=== PATIENT | female | born 1935 | race Caucasian/White ===

== ENCOUNTER 2023-07-25 15:52 | Emergency (ER) | payer MEDICARE, OTHER, SELFPAY ==
[2023-07-25 15:54] VITALS: BP 149/109; PULSE 85; RESP 14; TEMP 36.7; O2SAT 98; BMI 24.3
--- NOTE | 2023-07-25 16:09 | EX.ED.DYSGE1 ---
HPI History of Present Illness Chief Complaint: Constipation Informant: patient Onset/Context/Timing Onset: Days Narrative Narrative: Patient presents secondary to constipation. She states that she had had some mild constipation early last week and took a dose of Colace. Her last bowel movement was on the . She states since that time she feels that she needs to pass stool but has been unable. She feels that there is a mass or large hemorrhoid at the rectum blocking the stool from being able to pass. She states she had 1 day where there was just a few drops of blood when she wiped. Otherwise no GI bleeding. She believes her last colonoscopy was at least 20 years ago. [facility] Medical History (Updated 07/25/23 @ 19:[address] Jacey Dahl MD) Broken femur Medical History no medical history Home Medications Acyclovir 800 mg PO 5X/DAY ##7 03/08/15 [Rx Last Taken Unknown] Prednisone 40 mg PO DAILY ##7 03/08/15 [Rx Last Taken Unknown] Allergy/AdvReac Type Severity Reaction Status Date / Time cortisone Allergy Other Verified 07/25/23 15:53 oxycodone HCl AdvReac Nausea Verified 07/25/23 15:53 [From OxyContin] Surgical History (Updated 07/25/23 @ 16:09 by Judith Bowling) H/O: hysterectomy Social History Smoking Status: Never smoker ROS ROS ED Constitutional Constitutional ED: Denies chills or fever(s) Eyes Eyes: Denies discharge from eye(s) ENT ENT ED: Denies discharge from eye(s), rhinorrhea or sore throat Cardiovascular Cardiovascular: Denies chest pain or palpitations Respiratory/Chest Respiratory/Chest: Denies cough or dyspnea Gastrointestinal Gastrointestinal: Reports constipation; Denies abdominal pain, nausea or vomiting Genitourinary Genitourinary ED: Denies dysuria Musculoskeletal Musculoskeletal: Denies back pain or extremity pain Integumentary Denies Abrasions or rash Neurologic Neurologic: Denies headache(s) or weakness Psychiatric Psychiatric: Denies anxiety or depression Allergic/Immunologic Allergic/Immunologic ED: Denies lip swelling or urticaria EXAM Physical Exam Const Vital Signs: 07/25/23 15:54 Temperature 98.1 F Temperature Source Temporal Pulse Rate 85 Respiratory Rate 14 Blood Pressure 149/109 H Blood Pressure Mean 122 Pulse Ox 98 Oxygen Delivery Method Room Air Positive well nourished and well developed General Appearance ED: well developed HEENT Reports moist mucous membranes Eyes EOMs intact bilaterally Chest Wall inspection of chest normal and palpation of chest normal Resp normal respiratory effort and clear to auscultation bilaterally Cardio regular rate and regular rhythm GI non-tender GI Narrative: Rectal examination reveals no obvious external hemorrhoids. No masses on palpation and no stool noted in the vault. Auscultation: hypoactive bowel sounds Palpation: soft Extremity normal to inspection Neuro oriented x3 and no sensory deficits noted Motor Exam: strength 5/5 throughout Psych mental status grossly normal Skin no rashes or lesions noted MDM MDM MDM Narrative Medical decision making narrative: Patient sent for abdominal x-ray to evaluate stool pattern and location. Radiography Diagnostic Testing: Clinical Impression(s) from Imaging Studies KUB X-Ray 07/25/23 16:20 IMPRESSION: No acute pathology of the abdomen and pelvis. No significant fecal retention. Electronically Signed: James Terry DO at 18:33 EST Reading Location ID and State: [facility] / [place] Tel [phone], Service support , Treatment and Re-Evaluation :: Abdominal x-ray per my interpretation reveals some stool but no evidence of obstruction. Soapsuds enema was performed with good results. Patient feels improved. She will be discharged home. Discharge Plan Triage Chief Complaint: Constipation ED Provider: Jacey Dahl Dx/Rx/DC Orders Clinical Impression: Constipation Instructions: ED Constipation (Adult) Prescriptions: No Action Acyclovir 800 MG tablet 800 mg PO 5X/DAY Qty: 7 0RF Prednisone 20 MG tablet 40 mg PO DAILY Qty: 7 0RF Primary Care Provider: Care Physician,No Primary Referrals: Hermila Ma DO [Med Staff - Apprentice Electrician] - As Needed Care Physician,No Primary [Primary Care Provider] - Disposition Disposition: Home, Self Care
--- NOTE | 2023-07-25 16:20 | RAD_ITS ---
STUDY: X-RAY - ABDOMEN/PELVIS REASON FOR EXAM: Female, 88 years old. Constipation TECHNIQUE: Frontal views COMPARISON: None. FINDINGS: Normal visualized lung bases. There is an unremarkable bowel gas pattern. There is no demonstrated free abdominal air. The visualized liver, spleen and kidneys are grossly normal in size and morphology. Normal soft tissue structures. Degenerative vertebral changes. Mild scoliosis. RAD/Abdomen Single View IMPRESSION: No acute pathology of the abdomen and pelvis. No significant fecal retention. Electronically Signed: James Terry DO at 18:33 EST ,
--- OUTSIDE RECORDS SUMMARY | 2023-07-25 16:52 | XMS RPT_ITS | CCD ---
Author Name Unknown Address [address] [place] [address] [place] [id number] Organization [facility] Care Team Providers Care Search Engine Marketing Specialist Name Role Phone ZENON SALAS Attending Unavailable ZENON SALAS Primary Care Unavailable ZENON SALAS Admitting Unavailable Problems Problem Classification Problem Date Documented Da te Episodic/Chronic Immunizations and screening for infectious disease (3 sources) Encounter for screening for other viral diseases; Translations: [Encounter for screening for other viral diseases] Onset: 06-03-2020 Episodic Results Test Name Value Interpretation Reference Range Facil ity Encounters Encounter Date Encounter Type Care Provider Facility Start: 06-03-2020 End: 06-03-2020 Patient encounter procedure ZENON SALAS [facility] Payers Date Payer Category Payer Unknown [id number] Unknown Clinical Note 02-07-2021 Note Date & Type Note Facility 02-07-2021 Note . MICRO - Microbiology PROCEDURE: Urine Culture [*1] SOURCE: Urine, Clean Catch BODY SITE: COLLECTED DATE/TIME: 02/04/2021 15:21 EDT RECEIVED DATE/TIME: 02/05/2021 14:07 EDT START DATE/TIME: 02/05/2021 14:07 EDT FREE TEXT SOURCE: FINAL REPORTS Final Report [] Verified Date/Time/Personnel: 02/07/2021 07:24 EDT >100,000 cfu/ml Escherichia coli PRELIMINARY REPORTS Preliminary Report [] Verified Date/Time/Personnel: 02/06/2021 12:08 EDT >100,000 cfu/ml Escherichia coli MARILY to follow SUSCEPTIBILITY RESULTS Escherichia coli Antibiotic MARILY Dilut MARILY Inter Ampicillin >16 Resistant Ampicillin/ 16/8 Intermediate Sulbactam Aztreonam <=4 Susceptible Cefazolin <=2 Susceptible Ciprofloxacin <=0.25 Susceptible Ertapenem <=0.5 Susceptible Gentamicin <=2 Susceptible Imipenem <=1 Susceptible Levofloxacin <=0.5 Susceptible Meropenem <=1 Susceptible Nitrofurantoin <=32 Susceptible Piperacillin/ <=8 Susceptible Tazobactam Trimethoprim/ <=0.5/9.5 Susceptible Sulfa Performing Locations *1: This test was performed at: [facility], [facility] [address] [place] [address], [address] [place] [address] ([place]) Summary Purpose Family History No Family History Records FoundNo Family History Records Found Advance Directives No Advanced Directives Records FoundNo Advanced Directives Records Found Additional Source Comments INFORMATION SOURCE (unrecogn ized section and content) DATE CREATED AUTHOR AUTHOR'S ORGANIZ ATION 03/05/2021 [facility] [place] ([place]) FOR RECORDS PERTAINING TO PATIENTS WHO ARE OR HAVE BEEN ENROLLED IN A CHEMICAL DEPENDENCY/SUBSTANCEABUSE PROGRAM, SOME INFORMATION MAY BE OMITTED. This clinical summary was aggregated from multiple sources. Caution should be exercised in using it in the provision of clinical care. This summary normalizes information from multiple sources, and as a consequence, information in this document may materially change the coding, format and clinical context of patient data. In addition, data may be omitted in some cases. CLINICAL DECISIONS SHOULD BE BASED ON THE PRIMARY CLINICAL RECORDS. [facility] [employer] [facility]. provides no warranty or guarantee of the accuracy or completeness of information in this document.
== END 2023-07-25 19:09 | disposition home or self-care (01) ==
PROVIDERS: Emergency Provider Emergency Medicine; Visit Provider Emergency Medicine
DX: K59.00 Constipation, unspecified (principal)
CPT/HCPCS: 74018; 99284

== ENCOUNTER 2024-07-11 18:10 | Emergency (ER) | payer MEDICARE, OTHER, SELFPAY ==
[2024-07-11 18:11] VITALS: BP 164/95; PULSE 112; RESP 16; TEMP 37.6; O2SAT 97; BMI 23.5
[2024-07-11 19:09] LABS: Absolute Lymphocyte Count 0.68 X10^3/uL (0.83-4.51); Absolute Neutrophil Count 11.3 X10^3/uL (2.0-7.7); Basophil# 0.02 X10^3/uL; Basophil% 0.2 % (0-1); Hemoglobin 12.7 g/dL (12.0-15.0); Lymphocyte # 0.68 X10^3/ul (0.83-4.51); Lymphocyte % 5.2 % (19-41); Mean Corp Hgb Conc 34.3 g/dL (32-36); Mean Corpuscular Hgb 30.5 pg (27.0-32.0); Mean Corpuscular Volume 88.7 fL (81-99); Mean Platelet Vol. 8.5 fl (6.2-12.0); Monocyte# 0.98 X10^3/uL; Monocyte% 7.5 % (0-10); NRBC Flagged by Analyzer 0 % (0-5); Neutrophil % 86.6 % (47-70); Platelet Count 352 K/mm3 (150-450); RBC Distribution Width CV 12.7 % (11.6-14.6); RBC Distribution Width SD 41.1 fl (35.1-43.9); Red Blood Count 4.17 M/mm3 (4.2-5.4)
[2024-07-11 19:29] LABS: ALB/GLOB Ratio 0.7 RATIO (0.9-2.4); AST(SGOT) 12 U/L (15-37); Alanine Aminotransfer ALT/SGPT 14 U/L (13-56); Albumin, Serum 3.2 g/dL (3.2-5.0); Alkaline Phosphatase 119 U/L (45-117); Anion Gap 6 (5-15); BUN 10 mg/dL (7-18); BUN/Creat Ratio 17.6 RATIO (10-20); Calcium,Total 9.1 mg/dL (8.5-10.1); Chloride 99 mmol/L (98-107); Creatinine, Serum 0.57 mg/dL (0.55-1.02); EST Glomerular Filtration Rate 107 mL/min (>60); Est Glom Filt Rate - Afr Amer 129 mL/min (>60); Estimated Creatinine Clearance 35.97 ml/min; Globulin 4.3 g/dL (2.2-4.2); Glucose 97 mg/dL (74-106); Potassium 3.2 mmol/L (3.5-5.1); Protein, Total 7.5 g/dL (6.4-8.2); Sodium Level 132 mmol/L (136-145)
[2024-07-11 20:15] VITALS: BP 161/72; PULSE 82; RESP 17; TEMP 37.7; O2SAT 98
--- NOTE | 2024-07-11 20:24 | RAD_ITS ---
STUDY: X-RAY - RIGHT SHOULDER REASON FOR EXAM: Female, 89 years old. Injury/Pain TECHNIQUE: 3 view(s) of the shoulder. COMPARISON: None. FINDINGS: Narrowed glenohumeral articulation with narrowing of the subacromial space. Normal acromioclavicular joint. Normal acromion. Normal humeral head and visualized proximal humerus. The soft tissue structures are unremarkable. Normal visualized pulmonary apex. RAD/Shoulder min 2 Views IMPRESSION: Degenerative changes. No acute fracture or dislocation. Electronically Signed: Tha Martinez MD at 22:04 EST ,
--- NOTE | 2024-07-11 20:25 | RAD_ITS ---
STUDY: X-RAY CHEST REASON FOR EXAM: Female, 89 years old. Pain TECHNIQUE: PA and lateral COMPARISON: None. FINDINGS: The lungs are clear and expanded. There is no demonstrated pleural abnormality. Normal size heart. Normal mediastinum and betsy. Normal visualized pulmonary arteries. Mildly calcified aortic arch and descending thoracic aorta. Normal visualized thoracic spine. Normal visualized ribs, and clavicles. Degenerative changes of both shoulders There is no demonstrated abnormality of the visualized soft tissue structures of the upper abdomen. RAD/Chest PA and Lateral IMPRESSION: No acute cardiopulmonary pathology Electronically Signed: Tha Martinez MD at 22:03 EST ,
--- NOTE | 2024-07-11 20:29 | EDS_ITS ---
HPI History of Present Illness Chief Complaint: General Illness Informant: patient Onset/Context/Timing Onset: Weeks (1) Context: Gradual Onset Timing: Continuous Quality: Sharp Location: Neck, head, right shoulder Worsened by: Movement Relieved by: Nothing Narrative Narrative: Patient presents with neck pain, headache, and right shoulder pain that has been getting worse over the past week. Patient states her pain in her right shoulder has been getting worse over the past 3 to 4 days. Patient states it is worse with any movement. Patient describes it as sharp. Patient admits to some nausea. Patient also admits to an occipital headache. Patient denies any tr auma or injury. Patient states that she has had some nausea and diarrhea last week. [facility] Medical History Hyperlipemia Broken femur Home Medications ?Medication ?Instructions ?Recorded ?Last Taken ?Type cephalexin 500 mg capsule 500 mg PO Q6 #12 CAPSULES 07/11/24 Unknown Rx hydrocodone-acetaminophen 5-325mg 1 tab PO Q6H PRN PRN Pain 3 days 07/11/24 Unknown Rx 5mg-325mg #10 TABLETS Allergy/AdvReac Type Severity Reaction Status Date / Time cortisone Allergy Other Verified 07/11/24 18:11 oxycodone HCl (From AdvReac Nausea Verified 07/11/24 18:11 OxyContin) Surgical History History of rectal surgery History of bilateral knee replacement H/O: hysterectomy Social History Smoking Status: Never smoker ROS ROS ED Constitutional Constitutional ED: Denies chills or fever(s) Eyes Eyes: Denies blurry vision or change in vision ENT ENT ED: Denies rhinorrhea or sore throat Cardiovascular Cardiovascular: Denies chest pain or palpitations Respiratory/Chest Respiratory/Chest: Denies cough or dyspnea Gastrointestinal Gastrointestinal: Reports nausea; Denies vomiting Genitourinary Genitourinary ED: Denies dysuria or hematuria Musculoskeletal Musculoskeletal: Reports neck pain; Denies back pain Integumentary Denies abscess or rash Neurologic Neurologic: Reports headache(s); Denies weakness Allergic/Immunologic Allergic/Immunologic ED: Denies mouth swelling or urticaria EXAM Physical Exam Const Vital Signs: 12/18/24 18:11 07/11/24 20:15 07/11/24 20:16 Temperature 99.6 F H 99.8 F H Temperature Source Oral Oral Pulse Rate 112 H 82 Respiratory Rate 16 17 Respiratory Effort Normal Non-Labored Respiratory Pattern Normal Blood Pressure 164/95 H 161/72 H Blood Pressure Mean 118 101 Pulse Ox 97 98 Oxygen Delivery Method Room Air Room Air Positive well nourished and well developed General Appearance ED: well developed and NAD HEENT Reports moist mucous membranes Neck supple and no JVD Resp normal respiratory effort and clear to auscultation bilaterally Cardio regular rate and regular rhythm GI non-tender and non-distended Palpation: soft Neuro oriented x3, CN's II-XII intact bilaterally and no sensory deficits noted Sensorium / Orientation: alert Motor Exam: strength 5/5 throughout Psych mental status grossly normal MDM MDM MDM Narrative Medical decision making narrative: Differential diagnosis includes muscle strain, fracture, viral illness, pneumonia, bronchitis, and urinary tract infection. BC will be obtained to assess for leukocytosis and anemia. Comprehensive metabolic profile will be obtained to assess for electrolyte abnormality, hepatic function, and renal function. Urinalysis will be obtained to assess for urinary tract infection and hematuria. COVID-19, influenza, and RSV PCR will be obtained to assess for viral illness. Cervical spine x-rays will be obtained to assess for cervical spine fracture and spondylolisthesis. X-rays of the right shoulder will be obtained to assess for right shoulder fracture and dislocation. Chest x-ray will be obtained to assess for pneumonia and bronchitis. Lab Data Attestation: I reviewed the patient's lab results. Lab results narrative: CBC was reviewed. There is a slight leukocytosis of 13.0. The remainder is within normal limits. Comprehensive metabolic profile was reviewed. Potassium was slightly low at 3.2. Alkaline phosphatase was slightly elevated at 119. The remainder is within normal limits. Urinalysis was reviewed. Urine ketones were 150. Leukocyte esterase was 100 with 5-10 white blood cells and 1+ bact eria. There are 0-5 epithelial cells. There is 5-10 red blood cells. COVID-19 PCR was reviewed and was negative. Influenza PCR was reviewed and was negative for influenza A and influenza B. RSV PCR was reviewed and was negative. Labs: Laboratory Results - last 24 hr 12/18/24 18:58 WBC 13.0 H RBC 4.17 L Hgb 12.7 Hct 37.0 MCV 88.7 MCH 30.5 MCHC 34.3 RDW Std Deviation 41.1 RDW Coeff of Aiden 12.7 Plt Count 352 MPV 8.5 Immature Gran % (Auto) 0.500 Neut % (Auto) 86.6 H Lymph % (Auto) 5.2 L Desha % (Auto) 7.5 Eos % (Auto) 0.0 Baso % (Auto) 0.2 Absolute Neuts (auto) 11.3 H Absolute Lymphs (auto) 0.68 L Nucleated RBC % 0 Sodium 132 L Potassium 3.2 L Chloride 99 Carbon Dioxide 27.0 Anion Gap 6 BUN 10 Creatinine 0.57 Estim Creat Clear Calc 35.97 Est GFR (MDRD) Af Amer 129 Est GFR (MDRD) Non-Af 107 BUN/Creatinine Ratio 17.6 Glucose 97 Calcium 9.1 Total Bilirubin 1.00 AST 12 L ALT 14 Alkaline Phosphatase 119 H Total Protein 7.5 Albumin 3.2 Globulin 4.3 H Albumin/Globulin Ratio 0.7 L Radiography Chest X-Ray - ED: 2 View, Read by ED Physician, Read by Radiologist and No Acute Disease Diagnostic Testing: PA and lateral chest x-ray was obtained. There are 2 views. On my independent interpretation, lung sherman are clear. There is normal cardiac silhouette. Bony thorax is normal. There is no acute process noted. Radiologist also interpreted the x-ray and agrees. X-rays of the right shoulder were obtained. There are 4 views. On my interpretation, there is no acute fracture. There are degenerative changes noted. Radiologist also interpreted the x-rays and agrees. X-rays of the cervical spine were obtained. There are 4 views. On my independent interpretation, there is no acute fracture or subluxation. There is no spondylolisthesis. There are some degenerative changes. Radiologist also interpreted the x-rays and agrees. Additional Tests and Interventions Additional Tests or Interventions: Urine culture was ordered. Treatment and Re-Evaluation :: Patient was given a dose of [place] here. Patient was advised of her findings. Patient was given a prescription for Keflex for possible urinary tract infection. Patient was instructed to drink plenty of fluids. Patient was also given a prescription for a short course of [place] for pain. Patient understood and was agreeable with the plan. All questions were answered. Discharge Plan Triage Chief Complaint: General Illness Other Complaint: Nausea/Vomiting/Diarrhea ED Provider: Chandu Olguin Dx/Rx/DC Orders Clinical Impression: Urinary tract infection, Cervical myofascial strain Instructions: ED Neck Sprain or Strain, ED Cystitis Female Adult Prescriptions: New hydrocodone-acetaminophen 5-325 mg tablet 1 tab PO Q6H PRN PRN (Reason: Pain) 3 Days Qty: 10 0RF cephalexin 500 mg capsule 500 mg PO Q6 Qty: 12 0RF Primary Care Provider: Care Physician,No Primary Referrals: Care Physician,No Primary [Primary Care Provider] - Print Language: Swedish Disposition Disposition: Home, Self Care
[2024-07-11] MEDS: HYDROcodone Bitartrate/Apap 5/325 Tablet PO (20:48)
[2024-07-11 21:00] VITALS: BP 141/67; PULSE 81; RESP 17; TEMP 37.7; O2SAT 98
--- NOTE | 2024-07-11 21:00 | RAD_ITS ---
STUDY: X-RAY - CERVICAL SPINE REASON FOR EXAM: Female, 89 years old. Injury/Pain TECHNIQUE: 4 view(s) of the cervical spine were obtained. COMPARISON: None FINDINGS: Normal anterior atlantoaxial articulation. Normal odontoid process. Straightening of normal lordotic curvature possibly due to positioning artifact. . Grade 1 spondylolisthesis. No acute fracture or subluxation. No lytic or sclerotic bony lesions Multilevel disc space narrowing and endplate spurring The soft tissue structures are unremarkable. RAD/Cerv Spine 2 or 3 Views IMPRESSION: Advanced degenerative change. No acute fracture or subluxation. Electronically Signed: Tha Martinez MD at 22:06 EST ,
[2024-07-11 22:00] VITALS: BP 138/64; PULSE 81; RESP 17; TEMP 37.6; O2SAT 97
[2024-07-11 22:30] LABS: Color, Urine Straw (Yellow); Glucose, Dipstick Normal (Normal); Leukocyte Esterase-Dipstick 100 /ul (Negative); Nitrite-Dipstick Negative (Negative); Occult Blood-Urine 50 /ul (Negative); Protein-Dipstick 100 mg/dl (Negative); Urine Bilirubin Dipstick Negative (Negative); Urine Clarity Sl. Cloudy (Clear); Urine Urobilinogen 1 mg/dl (Normal)
[2024-07-11 22:37] LABS: Ketone-Dipstick 150 mg/dl (Negative)
[2024-07-11 22:46] LABS: Red Blood Cells-Urine 5-10 SEEN /hpf (0-5); White Blood Cells 5-10 SEEN /hpf (0-5)
[2024-07-11 22:47] LABS: Bacteria 1+ /hpf (None Seen); Hyaline Cast 0-5 SEEN /lpf (0-5); Mucous, Urine 2+ /hpf (<or=2+); Squamous Epithelial Cells - UA 0-5 SEEN /hpf (5-10)
[2024-07-11 23:00] VITALS: BP 137/59; PULSE 76; RESP 20; TEMP 37.6; O2SAT 95
[2024-07-11 23:57] VITALS: BP 142/52; PULSE 72; RESP 20; TEMP 36.6; O2SAT 95
[2024-07-12] MEDS: Cephalexin 500 MG Capsule PO (00:20)
== END 2024-07-12 00:18 | disposition home or self-care (01) ==
PROVIDERS: Emergency Provider Emergency Medicine; Visit Provider Emergency Medicine
DX: N39.0 Urinary tract infection, site not specified (principal); S16.1XXA Strain of muscle, fascia and tendon at neck level, initial encounter; X58.XXXA Exposure to other specified factors, initial encounter
CPT/HCPCS: 71046; 72040; 73030; 80053; 81001; 85025; 87086; 87088; 87631; 99285; A4216

== ENCOUNTER 2024-09-05 20:58 | Inpatient (IN) | payer MEDICARE, SELFPAY ==
[2024-09-05 21:01] VITALS: BP 153/96; PULSE 99; RESP 18; TEMP 36.8; O2SAT 99; BMI 24.7
--- NOTE | 2024-09-05 21:11 | EX.ED.DYSGE1 ---
HPI History of Present Illness Chief Complaint: General Illness [facility] Medical History Hyperlipemia Broken femur Home Medications ?Medication ?Instructions ?Recorded ?Last Taken ?Type benzonatate 100 mg capsule 100 mg PO TID PRN PRN cough 09/05/24 Unknown History doxycycline hyclate 100 mg tablet 100 mg PO BID 09/05/24 Unknown History Allergy/AdvReac Type Severity Reaction Status Date / Time cortisone Allergy Other Verified 09/05/24 21:04 oxycodone HCl (From AdvReac Nausea Verified 09/05/24 21:04 OxyContin) Surgical History History of rectal surgery History of bilateral knee replacement H/O: hysterectomy Social History Smoking Status: Never smoker EXAM Physical Exam Const Vital Signs: 09/05/24 21:01 09/05/24 21:17 09/05/24 23:00 Temperature 98.3 F Temperature Source Temporal Pulse Rate 99 89 Respiratory Rate 18 Respiratory Effort Short of Breath Respiratory Pattern Normal Blood Pressure 153/96 H 131/89 H Blood Pressure Mean 115 103 Pulse Ox 99 94 Oxygen Delivery Method Room Air 09/05/24 23:18 Temperature 97.6 F L Temperature Source Pulse Rate 89 Respiratory Rate 20 H Respiratory Effort Respiratory Pattern Blood Pressure 131/89 H Blood Pressure Mean 103 Pulse Ox 94 Oxygen Delivery Method MDM MDM MDM Narrative Medical decision making narrative: HISTORY OF PRESENT ILLNESS: 89-year-old female presents with concern for shortness of breath, difficulty voiding. States she has not urinated for the better part of 24 hours. States when she coughs or sneezes she has leakage of urine. Denies history of urinary tension. Notes shortness of breath as well for last 3 weeks. No she has been wheezing. No she went into urgent care approximately 9 days ago and was diagnosed with walking pneumonia. She was on doxycycline for which she is on day 9 of 10. She denies fever. Denies chest pain. Denies any PE risk factors (the patient denies recent surgery in the last 4 weeks or immobilization in the last 3 days, denies previous diagnosis of DVT or PE, hemoptysis, unilateral leg swelling or malignancy with treatment the last 6 months or palliative. No estrogen use noted.). Denies any bleeding diathesis. REVIEW OF SYSTEMS: Pertinent positives: Shortness of breath, urinary Pertinent negatives: Leg swelling, fever PHYSICAL EXAM: Nursing triage notes reviewed, Vital signs reviewed Constitutional: please see mdm HENT: MMM Eyes: Pupils equal round and reactive to light, Extraocular muscles intact Neck: No stridor, no JVD, full neck ROM Lungs: Clear to auscultation, slight expiratory wheezes noted no increased work of breathing, no conversational dyspnea, no accessory muscle use, no nasal flaring. No respiratory distress noted Heart: Regular rate and rhythm, No murmurs, No rubs and No gallops, 2+ distal pulses (radial, femoral, posterior tibial) in all extremities Abdomen: Soft, there is no tenderness, fullness noted to the suprapubic region of the lower abdomen but no rigidity, rebound or guarding, no obvious peritoneal signs, no palpable pulsatile abdominal masses, no auscultated abdominal bruit : No CVAT Extremities: No edema Neuro: No new focal neurological deficits, cranial nerves II through XII intact, 5/5 strength in all present extremities. Intact sensation to light touch in all present extremities, 2+ reflexes bilateral patella tendons. Skin: No rash or lesions noted MEDICAL DECISION MAKING: Chief Complaint: Short of breath, urinary retention External records reviewed: Reviewed prior ED visits, reviewed allergies, problem list, current medications Factors affecting care: none Social determinants of health: denies smoking History obtained from others: The patient's son Consults: Internal medicine (Dr. Albert) recommended PCU admission MDM Narrative: The patient was initially hemodynamically stable, afebrile and nontoxic-appearing. Exam with slight wheezing but no evidence of significant airway or respiratory compromise. Abdomen was soft however had lower abdominal fullness. I considered the following differential diagnosis: Urinary retention, AR, arrhythmia, anemia, electrolyte disturbance, COVID, RSV, flu, ACS, PE, CHF I obtained a broad lab and imaging workup to further elucidate etiology of patient's complaints. I obtained a bladder scan given patient report of Decreased urinary output ALL IMAGES (IF OBTAINED) HAVE BEEN PERSONALLY REVIEWED AND INTERPRETED BY MYSELF. Chest x-ray was read and reviewed personally showed evidence of right upper lobe and right middle lobe pneumonia BNP elevated consistent with increased ventricular stretch and a component of volume overload Initial troponin elevated consistent with myocardial ischemia CBC without leukocytosis, severe anemia, no thrombocytopenia. Without leukocytosis to suggest a significant nation, noted mild anemia, no thrombocytopenia BMP without evidence of significant electrolyte abnormalities, no anion gap, no acute kidney injury. EKG with normal sinus rhythm, normal axis, no intervals, QTc 430, no STEMI however there are ST depressions noted in V3 V4 and 5 consistent with subendocardial ischemia Given the patient's report of shortness of breath and markedly elevated troponin in the setting of internal chest x-ray for lung mass I did obtain a CTA of the chest rule out PE or lung mass. CT of the chest showed no evidence of pulmonary visible did show evidence of changes suggestive of pneumonia. No mass noted. Patient was treated with IV ceftriaxone azithromycin. I suspect her presentation may be related to pneumonia causing transient hypoxia and a type II demand ischemia leading to elevated troponin and NSTEMI. Discussed the case with hospitalist who agreed to admit the patient. The patient and/or family, caregivers express understanding. The patient and/or family, caregivers agrees with the plan. Shared decision making: I will have a discussion with the patient and or visitors regarding risk/benefits of further testing or admission. They will be made aware of of the risk/benefits inherent in this decision they will be given the opportunity to voice understanding. Total critical care time today provided was at least 0 minutes. This excludes separately billable procedures. Critical care time (if documented) is secondary to the patient having high probability of clinically significant/life threatening deterioration in the patient's condition which required my urgent intervention. Impression: 1. NSTEMI 2. Pneumonia 3. Anemia Dispo: Admit to the hospital This note was generated with [employer] dictation software. It may contain incorrect words, spelling, and punctuation that were not noted in review of the chart prior to signing. Lab Data Labs: Laboratory Results - last 24 hr 09/05/24 21:35 WBC 10.9 RBC 3.56 L Hgb 10.0 L Hct 31.3 L MCV 87.9 MCH 28.1 MCHC 31.9 L RDW Std Deviation 46.7 H RDW Coeff of Aiden 14.6 Plt Count 312 MPV 9.1 Immature Gran % (Auto) 0.500 Neut % (Auto) 82.0 H Lymph % (Auto) 9.1 L [place] % (Auto) 7.3 Eos % (Auto) 0.7 Baso % (Auto) 0.4 Absolute Neuts (auto) 8.9 H Absolute Lymphs (auto) 0.99 Nucleated RBC % 0 Sodium 137 Potassium 3.6 Chloride 102 Carbon Dioxide 27.0 Anion Gap 7 BUN 13 Creatinine 0.64 Estim Creat Clear Calc 39.47 Est GFR (MDRD) Af Amer 112 Est GFR (MDRD) Non-Af 93 BUN/Creatinine Ratio 20.3 H Glucose 103 Calcium 8.6 Troponin I High Sens 170 H* B-Natriuretic Peptide 581.1 H Radiography Diagnostic Testing: Clinical Impression(s) from Imaging Studies Chest X-Ray 09/05/24 22:00 IMPRESSION: Focal right apical airspace opacity, potentially pneumonia. Recommend radiographic follow-up after medical management to ensure complete resolution and exclude underlying malignancy. Reading Location: [facility] Chest CTA 09/05/24 22:15 IMPRESSION: 1. Large ground-glass airspace consolidation in the right upper lobe as well as scattered ground-glass airspace opacities in the bilateral lungs likely on an infectious inflammatory basis. 2. Small to moderate right and trace left pleural effusions with adjacent dependent infiltrates or atelectasis. 3. No CT evidence of pulmonary embolism. 4. Mediastinal and right hilar lymphadenopathy likely reactive to #1. 5. Additional findings as above. One or more dose reduction techniques were used (e.g., Automated exposure control, adjustment of the mA and/or kV according to patient size, use of iterative reconstruction technique). Reading Location: [facility] Discharge Plan Triage Chief Complaint: General Illness ED Provider: Eyad Canseco Dx/Rx/DC Orders Prescriptions: No Action benzonatate 100 mg capsule 100 mg PO TID PRN PRN (Reason: cough) doxycycline hyclate 100 mg tablet 100 mg PO BID Primary Care Provider: Care Physician,No Primary Referrals: Care Physician,No Primary [Primary Care Provider] - Print Language: Serbian
[2024-09-05 21:43] LABS: Absolute Lymphocyte Count 0.99 X10^3/uL (0.83-4.51); Absolute Neutrophil Count 8.9 X10^3/uL (2.0-7.7); Basophil# 0.04 X10^3/uL; Basophil% 0.4 % (0-1); Eosinophil# 0.08 X10^3/uL; Eosinophils% 0.7 % (0-5); Hematocrit 31.3 % (37-47); Lymphocyte # 0.99 X10^3/ul (0.83-4.51); Lymphocyte % 9.1 % (19-41); Mean Corp Hgb Conc 31.9 g/dL (32-36); Mean Corpuscular Hgb 28.1 pg (27.0-32.0); Mean Corpuscular Volume 87.9 fL (81-99); Mean Platelet Vol. 9.1 fl (6.2-12.0); Monocyte# 0.79 X10^3/uL; Monocyte% 7.3 % (0-10); NRBC Flagged by Analyzer 0 % (0-5); Neutrophil # 8.91 X10^3/uL (2.7-7.7); Platelet Count 312 K/mm3 (150-450); RBC Distribution Width CV 14.6 % (11.6-14.6); RBC Distribution Width SD 46.7 fl (35.1-43.9); Red Blood Count 3.56 M/mm3 (4.2-5.4); White Blood Count 10.9 K/mm3 (4.4-11.0)
--- NOTE | 2024-09-05 22:00 | RAD_ITS ---
PROCEDURE: CHEST 1 VIEW (PORTABLE) REASON FOR EXAM: Shortness of breath TECHNIQUE: Frontal view of the chest COMPARISON: None. FINDINGS: Borderline cardiomegaly. Diffuse coarse bilateral interstitial lung markings. Focal airspace opacity at the right lung apex. No sizable pleural effusion or pneumothorax. RAD/Chest 1 View (Portable) IMPRESSION: Focal right apical airspace opacity, potentially pneumonia. [facility] after medical management to ensure complete resolution and exclude underlying malignancy. Reading Location: [facility]
[2024-09-05 22:12] LABS: Anion Gap 7 (5-15); BUN 13 mg/dL (7-18); BUN/Creat Ratio 20.3 RATIO (10-20); Calcium,Total 8.6 mg/dL (8.5-10.1); Chloride 102 mmol/L (98-107); Creatinine, Serum 0.64 mg/dL (0.55-1.02); EST Glomerular Filtration Rate 93 mL/min (>60); Est Glom Filt Rate - Afr Amer 112 mL/min (>60); Estimated Creatinine Clearance 39.47 ml/min; Glucose 103 mg/dL (74-106); Potassium 3.6 mmol/L (3.5-5.1); Sodium Level 137 mmol/L (136-145); Troponin-I HS 170 pg/mL (3.0-54.0)
--- NOTE | 2024-09-05 22:15 | CT_ITS ---
PROCEDURE: CTA CHEST W/WO CONTRAST REASON FOR EXAM: Shortness of breath, cough. Questionable mass. TECHNIQUE: CTA imaging of the chest with intravenous contrast. 3D MIP images in the coronal and sagittal planes were obtained. 2D sagittal and coronal reformats were provided. COMPARISON: Chest x-ray from 09/05/2024. FINDINGS: There is no evidence of pulmonary embolism. Thoracic aorta demonstrates normal caliber with atherosclerotic calcifications. Cardiac size is within normal limits. There is mediastinal and right hilar lymphadenopathy. No pericardial effusion is identified. There is a small to moderate right and trace left pleural effusion with adjacent dependent infiltrates or atelectasis. There is a large ground-glass airspace consolidation in the right upper lobe. There are scattered ground-glass airspace opacities in the bilateral lungs. There is prominence of the pulmonary interstitium. Central airway is patent. No pneumothorax is identified. Evaluation of the osseous structures demonstrates degenerative changes. There is levoscoliosis of the lower thoracic spine. CT/CTA Chest W/WO Contrast IMPRESSION: 1. Large ground-glass airspace consolidation in the right upper lobe as well as scattered ground-glass airspace opacities in the bilateral lungs likely on an infectious inflammatory basis. 2. Small to moderate right and trace left pleural effusions with adjacent depen dent infiltrates or atelectasis. 3. No CT evidence of pulmonary embolism. 4. Mediastinal and right hilar lymphadenopathy likely reactive to #1. 5. Additional findings as above. One or more dose reduction techniques were used (e.g., Automated exposure contr ol, adjustment of the mA and/or kV according to patient size, use of iterative reconstruction technique). Reading Location: [facility]
[2024-09-05 22:45] LABS: BNP,B-Type NATRIURETIC PEPTIDE 581.1 pg/mL (0-100)
[2024-09-05 23:00] VITALS: BP 131/89; PULSE 89; O2SAT 94
[2024-09-05 23:18] VITALS: BP 131/89; PULSE 89; RESP 20; TEMP 36.4; O2SAT 94
--- NOTE | 2024-09-05 23:33 | HP.PCM.HOS_ITS ---
[facility] - General General Date of Admission: 09/06/24 Date of Service: 09/05/24 Chief Complaint: SOB and Urinary Incontinence. 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 Ms. White reports her symptoms began approximately three weeks prior to admission with the gradual-onset of DEAN with occasional wheezing. She then went to Urgent Care 9 days ago and was diagnosed with walking pneumonia and started on oral doxycycline with her symptoms failing to improve so she decided to come in for further evaluation and treatment. She also admits to associated stress incontinence of urine when she sneezes or coughs with leakage of urine. She denies related fever, chills, nausea, vomiting, diarrhea, constipation, chest pain, palpitations, lower extremity swelling, paresthesias or headache. In the ER she was noted to have CTA of the chest which revealed large ground-glass airspace consolidation in the RUL as well as scattered ground-glass air space opacities in the bilateral lungs likely on an infectious / inflammatory basis with small to moderate Right and trace Left pleural effusions with adjacent dependent infiltrates or atelectasis with no evidence of PE plus mediastinal and Right hilar lymphadenopathy likely reactive to infection complicated by elevated BNP of 581.1 pg/mL present on admission consistent with superimposed AE CHF; of uncertain-type complicated by elevated troponin of 170 pg/mL suspected to be due to Acute Cardiac Strain along with clinical evidence of Respiratory Insufficiency and worsening Stress Incontinence of urine and she was then admitted to the PCU for ongoing care for a stay that is expected to extend beyond 2 midnights. [facility] Medical History Hyperlipemia Broken femur Home Medications ?Medication ?Instructions ?Recorded ?Last Taken ?Type benzonatate 100 mg capsule 100 mg PO TID PRN PRN cough 09/05/24 Unknown History doxycycline hyclate 100 mg tablet 100 mg PO BID Unknown History Allergy/AdvReac Type Severity Reaction Status Date / Time cortisone Allergy Other Verified 09/05/24 21:04 oxycodone HCl (From AdvReac Nausea Verified 09/05/24 21:04 OxyContin) Surgical History History of rectal surgery History of bilateral knee replacement H/O: hysterectomy Social History Smoking Status: Never smoker ROS ROS Narrative Review of Systems: Constitutional: Patient denies fever or chills. Eyes: Patient denies changes in vision or discharge from eyes. ENT: Patient denies runny nose, sore throat or ear pain. Resp: Patient admits to SOB, cough and mild intermittent wheezing. CV: Patient denies chest pain, palpitations, heart racing or lower extremity edema. GI: Patient denies abdominal pain, nausea, vomiting, diarrhea or constipation. : Patient admits to worsening stress incontinence with cough and sneezing. She denies dysuria or hematuria. MSK: Patient denies arthralgias or myalgias. Skin: Patient denies rash, abscess, wound or jaundice. Psych: Patient denies symptoms of uncontrolled depression or anxiety. Neuro: Patient denies headache, paresthesias or focal neurologic deficits. Allergy: Patient denies lip swelling, tongue swelling or urticaria. Hematology: Patient denies easy bleeding or easy bruisability. Endocrinology: Patient denies polyuria, polydipsia or polyphagia. 14 point ROS otherwise negative except for positives noted above in HPI. Vital Signs Vital Signs Vital Signs: 09/05/24 21:01 09/05/24 21:17 09/05/24 23:00 Temperature 98.3 F Temperature Source Temporal Pulse Rate 99 89 Respiratory Rate 18 Respiratory Effort Short of Breath Respiratory Pattern Normal Blood Pressure 153/96 H 131/89 H Blood Pressure Mean 115 103 Pulse Ox 99 94 Oxygen Delivery Method Room Air 09/05/24 23:18 Temperature 97.6 F L Temperature Source Pulse Rate 89 Respiratory Rate 20 H Respiratory Effort Respiratory Pattern Blood Pressure 131/89 H Blood Pressure Mean 103 Pulse Ox 94 Oxygen Delivery Method Weight Weight: 131 lb Body Mass Index (BMI) 24.7 Physical Exam Const alert, oriented x3, no apparent distress and average body habitus Constitutional Narrative: Patient appear chronically ill. General Appearance: cooperative HEENT normocephalic, head/scalp atraumatic, hearing grossly normal bilaterally and moist oral mucous membranes Eyes PERRL, EOMs intact bilaterally and conjunctivae normal Neck no lymphadenopathy and supple Resp Resp Narrative: Diminished breath sounds throughout, Right > Left, with mild scattered expiratory wheezing. Cardio regular rate and regular rhythm GI normal to inspection, nondistended, normoactive bowel sounds, soft to palpation, non-tender and non-distended Extremity normal to inspection, full ROM and no clubbing, cyanosis or edema Skin Skin Narrative: Patient has no evidence of rash, abscess, wounds or jaundice. Neuro oriented x3, CN's II-XII intact bilaterally, moves all extremities and no focal motor deficits Sensorium / Orientation: awake, alert, oriented to person, oriented to place and oriented to time Speech: speech normal Psych affect normal Results Medical Records Data Attestation: I reviewed the patient's medical records Lab / Micro Data Attestation: I reviewed the patient's lab results. 09/06/24 03:30 09/06/24 03:30 Labs: Laboratory Results - last 24 hr 09/05/24 21:35: WBC 10.9, RBC 3.56 L, Hgb 10.0 L, Hct 31.3 L, MCV 87.9, MCH 28.1, MCHC 31.9 L, RDW Std Deviation 46.7 H, RDW Coeff of Aiden 14.6, Plt Count 312, MPV 9.1, Immature Gran % (Auto) 0.500, Neut % (Auto) 82.0 H, Lymph % (Auto) 9.1 L, [place] % (Auto) 7.3, Eos % (Auto) 0.7, Baso % (Auto) 0.4, Absolute Neuts (auto) 8.9 H, Absolute Lymphs (auto) 0.99, Nucleated RBC % 0, Sodium 137, Potassium 3.6, Chloride 102, Carbon Dioxide 27.0, Anion Gap 7, BUN 13, Creatinine 0.64, Estim Creat Clear Calc 39.47, Est GFR (MDRD) Af Amer 112, Est GFR (MDRD) Non-Af 93, BUN/Creatinine Ratio 20.3 H, Glucose 103, Calcium 8.6, T roponin I High Sens 170 H*, B-Natriuretic Peptide 581.1 H Micro: Microbiology 09/05/24 21:42 Mucosa - Nose SARS-CoV-2, Influenza & RSV (PCR) - Final Imaging Radiology Impression Chest X-Ray 09/05/24 22:00 IMPRESSION: Focal right apical airspace opacity, potentially pneumonia. Recommend radiographic follow-up after medical management to ensure complete resolution and exclude underlying malignancy. Reading Location: [facility] Chest CTA 09/05/24 22:15 IMPRESSION: 1. Large ground-glass airspace consolidation in the right upper lobe as well as scattered ground-glass airspace opacities in the bilateral lungs likely on an infectious inflammatory basis. 2. Small to moderate right and trace left pleural effusions with adjacent dependent infiltrates or atelectasis. 3. No CT evidence of pulmonary embolism. 4. Mediastinal and right hilar lymphadenopathy likely reactive to #1. 5. Additional findings as above. One or more dose reduction techniques were used (e.g., Automated exposure control, adjustment of the mA and/or kV according to patient size, use of iterative reconstruction technique). Reading Location: [facility] Assessment & Plan Assessment/Plan (1) Multifocal pneumonia: (2) Therapy failure due to antibiotic resistance: (3) Elevated troponin: (4) Respiratory insufficiency: (5) Stress incontinence in female: PLAN: Plan 1. Multifocal Pneumonia evident on CT; with Failed Outpatient Antibiotic Treatment with 9/10 days of doxycycline - Admit to PCU. Continue empiric IV ceftriaxone and IV azithromycin begun in the ER and await culture and sensitivity data. Check urinary antigens to Streptococcus pneumonia and Legionella. Give scheduled Mucinex BID. Give acetaminophen prn for [id number] (level 1-5/10) pain or fever. Give morphine IV prn for severe (level 6-10/10) pain. 2. AE CHF; of uncertain type evidenced by BNP of 581.1 pg/mL present on admission complicating #1 - Give furosemide IV daily plus supplemental KCl and magnesium. Check echocardiogram to evaluate LVEF. 3. Elevated troponin of 170 pg/mL due to suspected Acute Cardiac Strain due to #1 & #2 - Serialize troponin. Give ECASA plus full-dose Lovenox. Check Lexiscan NST in AM. 4. Respiratory Insufficiency attributable to #1 - #3 - Wean supplemental oxygen as tolerated. 5. Stress Incontinence adding to the burden of disease outlined from #1 - #4 - Patient will need to follow up with urology to explore treatment options. 6. History of hyperlipidemia; currently not on treatment - Check Lipid Profile to confirm status. 7. History of VZV of the Left face (2014) - Noted with no evidence of acute flare at this time. 8. History of constipation - Stable with no active issues reported at this time. 9. History of rectal surgery - Noted. 10. History of femur fracture - s/p ORIF - Noted. 11. History of hysterectomy - Noted. 12. OA; with history of bilateral TKR's - Stable. Give acetaminophen prn as per pain scale outlined above. 13. DVT prophylaxis - Patient on full-dose Lovenox for #3. Total time: Approximately (but not less than) 75 minutes. Charges/Coding Visit Charges Inpatient E&M: 88736 Init Hosp L3
--- NOTE | 2024-09-05 23:34 | EKG12_ITS ---
Test Reason : DYSRHYTHMIA Blood Pressure : */* mmHG Vent. Rate : 94 BPM Atrial Rate : 94 BPM P-R Int : 164 ms QRS Dur : 84 ms QT Int : 344 ms P-R-T Axes : 69 58 29 degrees QTcB Int : 430 ms Normal sinus rhythm Possible Left atrial enlargement ST & T wave abnormality, consider anterolateral ischemia Abnormal ECG Confirmed by VARUN CARPIO, CINDY ([id number]), greeting card editor ALLIE KAT ([id number]) on 09/07/2024 1:02:16 PM Referred By: Confirmed By: CINDY BOND MD
--- NOTE | 2024-09-05 23:37 | ED.RN ---
NO OLD EKG
[2024-09-05] MEDS: Ceftriaxone 1 GM/50 ML BAG IV (23:42)
[2024-09-06] VITALS (10 sets, daily range): BP systolic 118–141; BP diastolic 63–84; PULSE 82–95; RESP 14–24; TEMP 36.8–37.2; O2SAT 91–97; BMI 24.3
--- NOTE | 2024-09-06 00:13 | ECHOD_ITS ---
Reason For Study Reason For Study: chf Procedure This was a 2D Doppler, Color Flow transthoracic echocardiogram. Exam performed portable in patient room. Left Ventricle Normal LV size. The estimated ejection fraction is 60 %. No evidence for diastolic dysfunction. No regional wall motion abnormalities noted. Right Ventricle Normal RV size. Normal systolic function. Atria The left and right atria are normal. No doppler evidence for ASD. Mitral Valve There is no mitral valve stenosis. Moderate to severe mitral regurgitation. Tricuspid Valve There is no tricuspid stenosis. Trivial tricuspid valve insufficiency. Unable to estimate RV systolic pressure due to insufficient tricuspid regurgitant envelope. Aortic Valve Trisinus/trileaflet aortic valve. There is no aortic stenosis. No aortic valve insufficiency. Pulmonic Valve There is no pulmonic valvular stenosis. No pulmonic valve insufficiency. Great Vessels Normal aortic root. Pericardium/Pleural No pericardial effusion. MMode/2D Measurements & Calculations LVIDd: 3.5 cm IVSd: 1.0 cm LAV(MOD- bp): 39.0 ml LVIDs: 2.8 cm LVPWd: 1.2 cm LAV(MOD- bp) Indexed: 24.9 ml/m2 RVDd: 2.5 cm FS: 21.0 % LAV(MOD- sp2): 38.0 ml LAV(MOD- sp4): 36.6 ml SV(MOD-sp4): 34.9 ml SV(sp4- el): 37.9 ml LVAd ap4: 26.1 cm2 LVLd ap4: 7.8 cm SI(MOD-sp4): 22.3 ml/m2 EDV(MOD-sp4): 72.4 ml EDV(sp4-el): 74.6 ml LVAs ap4: 16.6 cm2 LVLs ap4: 6.4 cm ESV(MOD-sp4): 37.5 ml ESV(sp4-el): 36.7 ml EF(MOD-sp4): 48.2 % EF(sp4-el): 50.8 % LA A4 area: 14.9 cm2 RA A4 area: 11.5 cm2 Time Measurements MV dec time: 0.18 sec Doppler Measurements & Calculations MV E max magno: 89.1 cm/sec Lat Peak E' Magno: 8.5 cm/sec Med Peak E' Magno: 7.0 cm/sec MV A max magno: 103.9 cm/sec E/E' lat: 10.5 E/E' med: 12.8 MV E/A: 0.86 MV dec slope: 520.1 cm/sec2 Ao V2 max: 167.5 cm/sec LV V1 max: 139.7 cm/sec Ao max P.3 mmHg LV V1 max P.8 mmHg Ao V2 mean: 116.8 cm/sec LV V1 mean P.6 mmHg Ao mean P.3 mmHg LV V1 mean: 101.2 cm/sec Ao V2 VTI: 36.2 cm LV V1 VTI: 29.3 cm AV (velocity ratio): 0.81 PA V2 max: 108.7 cm/sec PA V2 mean: 77.3 cm/sec ECHO/Echo Complete Interpretation Summary The estimated ejection fraction is 60 %. No evidence for diastolic dysfunction. Moderate to severe mitral regurgitation Ordering Physician: Ronal Colin Referring Physician: no pcp Performed By: Tamia Torrez RCS
[2024-09-06] MEDS: Azithromycin 500 MG in 0.9% Normal Saline (250mL Bag) 250 ML 250 MG IV (00:28)
[2024-09-06 01:01] LABS: Thyroid Stim Hormone (TSH) 0.832 uIU/mL (0.358-3.740)
[2024-09-06] MEDS: Albumin Human 25% (50 mL) 12.5 GM/50 ML IV.SOLN IV (01:49)
[2024-09-06] MEDS: Aspirin 325 MG Tablet PO (01:49)
[2024-09-06 02:20] LABS: Troponin-I HS 182 pg/mL (3.0-54.0)
[2024-09-06 03:44] LABS: Absolute Lymphocyte Count 1.01 X10^3/uL (0.83-4.51); Absolute Neutrophil Count 7.4 X10^3/uL (2.0-7.7); Basophil# 0.03 X10^3/uL; Basophil% 0.3 % (0-1); Eosinophil# 0.05 X10^3/uL; Eosinophils% 0.5 % (0-5); Hematocrit 27.9 % (37-47); Hemoglobin 9.3 g/dL (12.0-15.0); Lymphocyte # 1.01 X10^3/ul (0.83-4.51); Lymphocyte % 10.9 % (19-41); Mean Corp Hgb Conc 33.3 g/dL (32-36); Mean Corpuscular Hgb 28.6 pg (27.0-32.0); Mean Corpuscular Volume 85.8 fL (81-99); Mean Platelet Vol. 9.2 fl (6.2-12.0); Monocyte# 0.74 X10^3/uL; NRBC Flagged by Analyzer 0 % (0-5); Neutrophil # 7.37 X10^3/uL (2.7-7.7); Neutrophil % 79.8 % (47-70); Platelet Count 299 K/mm3 (150-450); RBC Distribution Width CV 14.5 % (11.6-14.6); RBC Distribution Width SD 45.2 fl (35.1-43.9); Red Blood Count 3.25 M/mm3 (4.2-5.4); White Blood Count 9.3 K/mm3 (4.4-11.0)
[2024-09-06] MEDS: MethylPREDNISolone 125 MG/2 ML Vial IV (04:00)
[2024-09-06] MEDS: 0.9% Saline Lock 10 ML Syringe IV ×3 (04:01→17:27)
[2024-09-06 04:10] LABS: BNP,B-Type NATRIURETIC PEPTIDE 921.9 pg/mL (0-100)
[2024-09-06 04:18] LABS: ALB/GLOB Ratio 0.9 RATIO (0.9-2.4); AST(SGOT) 37 U/L (15-37); Alanine Aminotransfer ALT/SGPT 28 U/L (13-56); Albumin, Serum 2.9 g/dL (3.2-5.0); Alkaline Phosphatase 114 U/L (45-117); Anion Gap 7 (5-15); BUN 11 mg/dL (7-18); BUN/Creat Ratio 19.4 RATIO (10-20); Calcium,Total 8.4 mg/dL (8.5-10.1); Chloride 102 mmol/L (98-107); Cholesterol 198 mg/dL (200); Creatinine, Serum 0.57 mg/dL (0.55-1.02); EST Glomerular Filtration Rate 107 mL/min (>60); Est Glom Filt Rate - Afr Amer 129 mL/min (>60); Globulin 3.4 g/dL (2.2-4.2); Glucose 102 mg/dL (74-106); High Density Lipoprotein 54 mg/dL; Phosphorus 2.8 mg/dL (2.5-4.9); Potassium 3.8 mmol/L (3.5-5.1); Protein, Total 6.3 g/dL (6.4-8.2); Sodium Level 134 mmol/L (136-145); Triglycerides 50 mg/dL; Very Low Density Lipoprotein 10 mg/dL (5-40)
[2024-09-06 04:28] LABS: Troponin-I HS 189 pg/mL (3.0-54.0)
--- NOTE | 2024-09-06 05:20 | RAD_ITS ---
PROCEDURE: CHEST 1 VIEW (PORTABLE) REASON FOR EXAM: 89-year-old female, multifocal pneumonia and acute onset CHF. TECHNIQUE: Frontal view of the chest. COMPARISON: CTA chest and chest radiograph 09/05/2024, FINDINGS: The heart size is normal. Similar right upper lobe airspace opacity. Small right and trace left pleural effusions. No pneumothorax. Degenerative changes are identified within the thoracic spine. RAD/Chest 1 View (Portable) IMPRESSION: Similar right upper lobe opacity, compatible with pneumonia. Small right and t race left pleural effusions. Reading Location: [id number]
--- NOTE | 2024-09-06 05:55 | EKG12_ITS ---
Test Reason : CP ADMISSION Blood Pressure : */* mmHG Vent. Rate : 90 BPM Atrial Rate : 90 BPM P-R Int : 146 ms QRS Dur : 88 ms QT Int : 380 ms P-R-T Axes : 37 62 -18 degrees QTcB Int : 464 ms Normal sinus rhythm Cannot rule out Inferior infarct , age undetermined Cannot rule out Anterior infarct , age undetermined Abnormal ECG When compared with ECG of 05-Sep-2024 23:48, MANUAL COMPARISON REQUIRED DATA IS UNCONFIRMED Confirmed by VARUN CARPIO, CINDY ([id number]), desk editor ALLIE KAT ([id number]) on 09/07/2024 1:04:48 PM Referred By: HER Confirmed By: CINDY BOND MD
--- NOTE | 2024-09-06 08:35 | NURSING ---
Attempted to complete patients ambulatory pulse ox but patient was unable to walk very far. Patient felt significantly short of breath, saturation hit 88% and patient needed to stop to catch her breath. Was starting to apply oxygen to continue testing but patient requested to go back to her room so oxygen not applied and after resting, saturation was 89-90%. Patient back to room and resting, recovered with rest. CM and charge attendant notified.
[2024-09-06] MEDS: Potassium Chloride Oral Tablet 20 MEQ PO ×2 (08:43→17:24)
[2024-09-06] MEDS: Cholecalciferol (Vit D3) 125 MCG CAPSULE (5,000 UNITS) PO (08:43)
[2024-09-06] MEDS: Ascorbic Acid 500 MG Tablet 1000 MG PO ×2 (08:43→17:25)
[2024-09-06] MEDS: Lactobacillis Acidophilus 1 CAP PO ×3 (08:43→20:37)
[2024-09-06] MEDS: Magnesium Chloride 64 MG Delay Rel.Tablet 128 MG PO ×2 (08:43→20:37)
[2024-09-06] MEDS: guaiFENesin 600 MG Tablet PO ×2 (08:43→20:37)
[2024-09-06] MEDS: Zinc Sulfate 50 mg zinc (220 mg) ORAL capsule PO (08:44)
[2024-09-06] MEDS: Furosemide 40 MG/4 ML Vial IV ×2 (09:18→17:25)
--- NOTE | 2024-09-06 12:20 | CASEMGMT ---
RN CM Face to Face with patient for initial transition planning/care coordination assessment. RN CM introduced self and role at [facility]. Patient lying in bed, alert and oriented. Patient willing to participate in assessment and is able to answer all questions appropriately. Care providers, pharmacy, and demographics verified. PCP: none, PCP list provided Specialists: none Preferred Pharmacy: [facility] Retail Insurance: [employer] Prescription Benefit: yes Living Will/HPOA: none, interested in completing, SW notified. LNOK: sons Living Arrangements: Patient lives with son, DIL, and grandsons in a 2 story home with bed and bath on first floor. Patient is independent at home. Transportation: self, son, DIL DME/HHC: Patient has cane, shower chair, crutches at home. No previous HHC or SNF Patient wishes to discharge home, denies need for home health at this time. Patient states she has no further needs or concerns at this time. CM to follow for discharge planning needs that may arise. Disposition Plan: Patient to discharge home with family support and follow-up plans in place. Megha LEON, RN, CM
--- NOTE | 2024-09-06 14:35 | CHAPLAIN ---
Type of Pastoral Visit _x_ Initial Visit ___ Follow-up Visit ___ On-call Visit ___ General Patient Visit ___ Spiritual Assessment ___ Family Conference ___ Bereavement ___ Rapid Response ___ Code Blue ___ Other (describe below) Pastoral Care Referral From _x__ Patient ___ Family ___ Nurse ___ Physician ___ Food Production Supervisor ___ Communications Lead ___ Other (describe below) Sacrament/Intervention _x__ Active listening ___ Anointing ___ Temple ___ Bereavement ___ Communion _x__ Lisbeth exploration ___ ___ Life review _x__ Prayer ___ Reconciliation ___ Sacrament of Sick ___ Supportive presence ___ Wedding ___ Other (describe below) Pastoral Comments patient just got a late lunch and is eating; pt is welcoming and expresses thanks for the care and for the help given medically by the staff; pt says that she is not normally sick and so the last few weeks of illness have been a change for her; pt expresses thanks for God and her lisbeth; pt is talkative and pt asks good questions to facilitate a conversation
--- NOTE | 2024-09-06 17:29 | PN.HOSP_ITS ---
Reason for Visit Reason for Visit: Diagnoses Pneumonia, unspecified organism (09/06/24) Stress incontinence (female) (male) (09/06/24) Other abnormalities of breathing (09/06/24) Other specified abnormal findings of blood chemistry (09/06/24) Resistance to unspecified antibiotic (09/06/24) Subjective Subjective Patient was seen and examined today, I examined her medical record and felt that it is most likely she has congestive heart failure rather than pneumonia at this time, patient has no complaints of any chills or fever at home, she is not producing any purulent sputum and her white blood cell count has remained normal. Made the decision today to take her off antibiotics and continue with IV furosemide. Patient's echocardiogram today showed normal ejection fraction there was noted to be moderate to severe mitral regurg. Objective Data Objective Data Vital Signs: Vital Signs Temp Pulse Resp BP Pulse Ox O2 Del Method 98.5 F 86 18 120/63 97 Room Air 09/06/24 16:15 09/06/24 16:15 09/06/24 16:15 09/06/24 16:15 09/06/24 16:15 09/06/24 16:15 Oxygen Delivery Method Room Air Weight: 58.5 kg Body Mass Index (BMI) 24.3 Intake & Output: Intake and Output for Last 24 Hours 09/04/24 09/05/24 09/06/24 23:59 23:59 23:59 Intake Total 595 / 595 Output Total 0 / 0 1500 / 1500 Balance 0 / 0 -905 / -905 Lab / Micro Data 09/06/24 03:30 09/06/24 03:30 Labs: Laboratory Results - last 24 hr 09/05/24 21:35: WBC 10.9, RBC 3.56 L, Hgb 10.0 L, Hct 31.3 L, MCV 87.9, MCH 28.1, MCHC 31.9 L, RDW Std Deviation 46.7 H, RDW Coeff of Aiden 14.6, Plt Count 312, MPV 9.1, Immature Gran % (Auto) 0.500, Neut % (Auto) 82.0 H, Lymph % (Auto) 9.1 L, [place] % (Auto) 7.3, Eos % (Auto) 0.7, Baso % (Auto) 0.4, Absolute Neuts (auto) 8.9 H, Absolute Lymphs (auto) 0.99, Nucleated RBC % 0, Sodium 137, Potassium 3.6, Chloride 102, Carbon Dioxide 27.0, Anion Gap 7, BUN 13, Creatinine 0.64, Estim Creat Clear Calc 39.47, Est GFR (MDRD) Af Amer 112, Est GFR (MDRD) Non-Af 93, BUN/Creatinine Ratio 20.3 H, Glucose 103, Calcium 8.6, T roponin I High Sens 170 H*, B-Natriuretic Peptide 581.1 H, TSH 0.832 09/06/24 01:25: Troponin I High Sens 182 H* 09/06/24 03:30: WBC 9.3, RBC 3.25 L, Hgb 9.3 L, Hct 27.9 L, MCV 85.8, MCH 28.6, MCHC 33.3, RDW Std Deviation 45.2 H, RDW Coeff of Aiden 14.5, Plt Count 299, MPV 9.2, Immature Gran % (Auto) 0.500, Neut % (Auto) 79.8 H, Lymph % (Auto) 10.9 L, [place] % (Auto) 8.0, Eos % (Auto) 0.5, Baso % (Auto) 0.3, Absolute Neuts (auto) 7.4, Absolute Lymphs (auto) 1.01, Nucleated RBC % 0, Sodium 134 L, Potassium 3.8, Chloride 102, Carbon Dioxide 25.0, Anion Gap 7, BUN 11, Creatinine 0.57, Estim Creat Clear Calc 39.20, Est GFR (MDRD) Af Amer 129, Est GFR (MDRD) Non-Af 107, BUN/Creatinine Ratio 19.4, Glucose 102, Calcium 8.4 L, Phosphorus 2.8, Magnesium 2.0, Total Bilirubin 0.60, AST 37, ALT 28, Alkaline Phosphatase 114, T roponin I High Sens 189 H*, B-Natriuretic Peptide 921.9 H, Total Protein 6.3 L, Albumin 2.9 L, Globulin 3.4, Albumin/Globulin Ratio 0.9, Triglycerides 50, Cholesterol 198, LDL Cholesterol 134 H, VLDL Cholesterol 10, HDL Cholesterol 54 Micro: Microbiology 09/06/24 03:50 Urine, Random Legionella Antigen - Final 09/06/24 03:50 Urine, Random Streptococcus pneumoniae Antigen (M - Final 09/05/24 21:42 Mucosa - Nose SARS-CoV-2, Influenza & RSV (PCR) - Final Radiography Diagnostic Testing: Radiology Impression Chest X-Ray 09/05/24 22:00 IMPRESSION: Focal right apical airspace opacity, potentially pneumonia. Recommend radiographic follow-up after medical management to ensure complete resolution and exclude underlying malignancy. [facility] Chest CTA 09/05/24 22:15 IMPRESSION: 1. Large ground-glass airspace consolidation in the right upper lobe as well as scattered ground-glass airspace opacities in the bilateral lungs likely on an infectious inflammatory basis. 2. Small to moderate right and trace left pleural effusions with adjacent dependent infiltrates or atelectasis. 3. No CT evidence of pulmonary embolism. 4. Mediastinal and right hilar lymphadenopathy likely reactive to #1. 5. Additional findings as above. One or more dose reduction techniques were used (e.g., Automated exposure control, adjustment of the mA and/or kV according to patient size, use of iterative reconstruction technique). Reading [facility] Echocardiogram 09/06/24 00:13 Interpretation Summary The estimated ejection fraction is 60 %. No evidence for diastolic dysfunction. Moderate to severe mitral regurgitation Ordering Physician: Ronal Colin Referring Physician: no pcp Performed By: Tamia Torrez RCS Chest X-Ray 09/06/24 05:20 IMPRESSION: Similar right upper lobe opacity, compatible with pneumonia. Small right and trace left pleural effusions. Reading Location: [facility] Physical Exam Const alert, oriented x3, no apparent distress and average body habitus Constitutional Narrative: Patient appears younger than her stated age General Appearance: cooperative, well kempt and well developed Orientation / Consciousness: awake, oriented to person, oriented to place and oriented to time HEENT normocephalic, head/scalp atraumatic and moist oral mucous membranes Eyes PERRL, EOMs intact bilaterally and conjunctivae normal Neck supple, no JVD, thyroid normal and no carotid bruits General: trachea midline Resp normal respiratory effort, no retractions, no use of accessory muscles and clear to auscultation bilaterally Auscultation: Negative for rales, rhonchi or wheezes Cardio regular rate, regular rhythm, S1 normal heart sound, S2 normal heart sound, no murmurs, no rub and no gallops GI normal to inspection, nondistended, normoactive bowel sounds, soft to palpation, non-tender and non-distended Extremity no clubbing, cyanosis or edema Skin no rashes or lesions noted General Skin Exam: no breakdown Neuro oriented x3, CN's II-XII intact bilaterally, moves all extremities, no focal motor deficits and no sensory deficits noted Sensorium / Orientation: awake and alert Speech: speech normal Psych affect normal Assessment & Plan Assessment/Plan (1) CHF (congestive heart failure): PLAN: Plan 1. New onset congestive heart failure with preserved ejection fraction-I feel that most likely explanation for the patient's shortness of breath is congestive heart failure, patient's echocardiogram showed a normal EF, her beta natruretic peptide was elevated x 2, patient's white blood cell count has remained normal. Patient is afebrile. I will repeat patient's CBC tomorrow #2 demand ischemia secondary to respiratory insufficiency-I do not believe the patient has had a type II NC #3 moderate to severe mitral regurg-complicates care, management, recovery, and prognosis Total clinical time spent by myself addressing the patient's medical issues, reviewing her data, and collaborating with her care team: 35 minutes Charges/Coding Visit Charges Inpatient E&M: 13126 Subs Hosp L2
[2024-09-06] MEDS: Enoxaparin 60 MG/0.6 ML Syringe SC (20:37)
--- NOTE | 2024-09-06 23:10 | NURSING ---
this nurse took over patient care at 2310. pt resting with eyes closed, call light within reach
[2024-09-07 02:00] VITALS: BP 123/70; PULSE 85; RESP 16; TEMP 36.6; O2SAT 96
[2024-09-07 05:45] VITALS: BMI 23.6
[2024-09-07 06:03] LABS: Basophil# 0.03 X10^3/uL; Basophil% 0.3 % (0-1); Eosinophil# 0.05 X10^3/uL; Eosinophils% 0.5 % (0-5); Hematocrit 35.5 % (37-47); Hemoglobin 11.4 g/dL (12.0-15.0); Lymphocyte % 19.1 % (19-41); Mean Corp Hgb Conc 32.1 g/dL (32-36); Mean Corpuscular Hgb 27.9 pg (27.0-32.0); Monocyte# 0.96 X10^3/uL; Monocyte% 9.6 % (0-10); NRBC Flagged by Analyzer 0 % (0-5); Neutrophil # 6.98 X10^3/uL (2.7-7.7); Neutrophil % 70.2 % (47-70); Platelet Count 427 K/mm3 (150-450); RBC Distribution Width CV 14.7 % (11.6-14.6); RBC Distribution Width SD 46.4 fl (35.1-43.9); Red Blood Count 4.08 M/mm3 (4.2-5.4)
[2024-09-07 06:29] LABS: Anion Gap 10 (5-15); BUN 18 mg/dL (7-18); BUN/Creat Ratio 22.8 RATIO (10-20); Calcium,Total 8.9 mg/dL (8.5-10.1); Chloride 98 mmol/L (98-107); Creatinine, Serum 0.79 mg/dL (0.55-1.02); EST Glomerular Filtration Rate 73 mL/min (>60); Est Glom Filt Rate - Afr Amer 88 mL/min (>60); Estimated Creatinine Clearance 35.97 ml/min; Glucose 88 mg/dL (74-106); Potassium 3.5 mmol/L (3.5-5.1); Sodium Level 134 mmol/L (136-145)
[2024-09-07 06:36] LABS: Magnesium 2.3 mg/dL (1.6-2.6)
[2024-09-07 09:47] VITALS: BP 134/85; PULSE 87; RESP 16; TEMP 37.1; O2SAT 97
[2024-09-07] MEDS: Potassium Chloride Oral Tablet 20 MEQ PO (09:51)
[2024-09-07] MEDS: Lactobacillis Acidophilus 1 CAP PO (09:52)
[2024-09-07] MEDS: guaiFENesin 600 MG Tablet PO (09:52)
[2024-09-07] MEDS: Cholecalciferol (Vit D3) 125 MCG CAPSULE (5,000 UNITS) PO (09:52)
[2024-09-07] MEDS: Ascorbic Acid 500 MG Tablet 1000 MG PO (09:52)
[2024-09-07] MEDS: Magnesium Chloride 64 MG Delay Rel.Tablet 128 MG PO (09:52)
[2024-09-07] MEDS: Zinc Sulfate 50 mg zinc (220 mg) ORAL capsule PO (09:52)
[2024-09-07] MEDS: Aspirin 81 MG TAB.CHEW PO (09:52)
[2024-09-07] MEDS: Furosemide 40 MG/4 ML Vial IV (09:52)
[2024-09-07] MEDS: 0.9% Saline Lock 10 ML Syringe IV (09:58)
--- NOTE | 2024-09-07 11:33 | CASEMGMT ---
Social Work SW met with pt and discussed HCPOA and Living Will. Pt wishes to complete documents but does not have addresses. SW offered to call pt's son to obtain addresses but pt states he cannot be disturbed at work. SW provided pt with SW phone number to call if she gets addresses today. SW provided pt with Advance Directive Rack Card and education that pt can schedule an outpatient appointment to complete documents when she has needed information. BESS Mcmanus
[2024-09-07 14:16] VITALS: O2SAT 92; O2SAT 96
--- NOTE | 2024-09-07 14:33 | PCM.DC ---
Discharge Instructions Diet Discharge Diet: No restrictions DC O2, CPAP, BIPAP needs RN Home O2 Qualification: Home O2 Qualification: Is the patient on home oxygen No 09/07/24 14:16 Home O2 Qualification: AT REST 1- Pulse Ox at rest 96 09/07/24 14:16 Home O2 Qualification: WITH AMBULATION 1- Pulse Ox with ambulation 92 09/07/24 14:16 1- Oxygen Flow Rate with 0 09/07/24 14:16 ambulation Home O2 Discharge instructions: No Dressing / Incision Discharge Activity: Return to Normal Activity Weight Bearing Status: Full weight bearing Follow Up Care Test Results: Test results from this visit will be discussed in further detail at your follow-up appointment, if applicable. Discharge Plan Admission Admit Date/Time: 09/06/24 00:02 Primary Reason for Your Visit: congestive heart failure, mitral regurg Attending Provider: Andrew Sebastian Primary Care Provider: Care Physician,No Primary Consulting Providers: Ronal Colin Discharge Orders/Prescriptions Prescriptions: New potassium chloride 20 mEq Tablet,Er Particles/Crystals 20 meq PO BIDCM Qty: 60 0RF furosemide [Lasix] 40 mg tablet 40 mg PO BID Qty: 60 0RF Continued benzonatate 100 mg capsule 100 mg PO TID PRN PRN (Reason: cough) Discontinued doxycycline hyclate 100 mg tablet 100 mg PO BID Referrals / Follow Up: Care Physician,No Primary [Primary Care Provider] - Teja Lo VOCATIONAL ED INSTRUCTOR, VOCATIONAL ED INSTRUCTOR-C [Non-Staff] - Within 2 Weeks Disposition Disposition (needs filled in before D/C Order can be placed): Home, Self Care
--- NOTE | 2024-09-07 14:56 | DS.PCM_ITS ---
Providers Date of Admission: 09/06/24 Date of Discharge: 09/07/24 Primary Care Physician: Nadia Primary Care Phys Reason For Visit: MULTIFOCAL PNEUMONIA AE CHF ELEVATED TROPONIN AND Diagnosis Discharge Diagnosis (1) CHF (congestive heart failure): Status: Acute Code(s): I50.9 - Heart failure, unspecified Plan 1. New onset congestive heart failure with preserved ejection fraction-I feel that most likely explanation for the patient's shortness of breath is congestive heart failure, patient's echocardiogram showed a normal EF, her beta natruretic peptide was elevated x 2, patient's white blood cell count has remained normal. Patient is afebrile. I will repeat patient's CBC tomorrow #2 demand ischemia secondary to respiratory insufficiency-I do not believe the patient has had a type II NC #3 moderate to severe mitral regurg-complicates care, management, recovery, and prognosis Total clinical time spent by myself addressing the patient's medical issues, reviewing her data, and collaborating with her care team: 35 minutes Medications at Discharge Home Medications benzonatate 100 mg capsule 100 mg PO TID PRN PRN cough 09/05/24 furosemide 40 mg tablet (Lasix) 40 mg PO BID #60 tabs 09/07/24 potassium chloride 20 mEq tablet,extended release(part/cryst) 20 meq PO BIDCM #60 tabs 09/07/24 Hospital Course Operations None Procedures 2-D Echocardiogram Summary of Care Provided Minutes Spent on Discharge: 31 Hospital Course: This 89-year-old white female was seen in the emergency room at [facility] with complaints of shortness of breath, recently she had been treated for walking pneumonia, she she was given an antibiotic by urgent care and chest x-ray was not obtained. Patient finished 10 days of doxycycline and did not feel any better so she came into the ER for evaluation. CT of the chest was performed which showed large groundglass airspace consolidation in the right upper lobe as well as scattered groundglass airspace opacities in the bilateral lungs likely on an infectious or inflammatory basis with small to moderate right and trace left pleural effusions with adjacent dependent infiltrates or atelectasis and no evidence of PE. Patient's labs revealed an elevated beta natruretic peptide. Patient's troponin was elevated at 170. Patient was admitted to PCU with a diagnosis of multifocal pneumonia and acute exacerbation of CHF. This examiner did not feel the patient had pneumonia, I felt that the patient most likely had an exacerbation of CHF, echocardiogram was obtained which showed a normal ejection fraction and moderate to severe mitral regurg, I felt that the patient's troponin elevation was due to demand ischemia. I did not feel the patient had an NC. Patient's respiratory status improved with IV diuresis. On 09/07/2024, patient was seen and examined: On examination she appeared in good health and spirits, she does not appear to be in any distress. Vital signs as documented. Skin warm and dry and without overt rashes. Neck without JVD, thyroid appears normal, trachea is midline, neck is supple. Lungs clear, normal air movement was noted. Heart exam notable for regular rhythm, normal sounds and a 2/6 systolic murmur at the apex and left sternal border, there were no rubs or gallops. Abdomen unremarkable and without evidence of organomegaly, masses, or abdominal aortic enlargement, bowel sounds are present in all 4 quadrants, no abdominal tenderness was noted. Extremities nonedematous, no cyanosis was noted, no clubbing was noted. Neuro: Cranial nerves II through XII are grossly intact, no focal motor deficits were noted, sensation to light touch and pinprick is intact, motor exam 5/5 throughout. Psych: Patient is alert and oriented x3, she does not appear anxious or depressed, she does not appear agitated. Patient was discharged home in stable condition on 09/07/2024. Weight / BMI Weight Weight: 56.6 kg Body Mass Index (BMI) 23.6 ABG / Lab / Microbiology Data 09/07/24 05:30 09/07/24 05:30 Laboratory: Laboratory Results - last 24 hr 09/07/24 05:30: WBC 10.0, RBC 4.08 L, Hgb 11.4 L, Hct 35.5 L, MCV 87.0, MCH 27.9, MCHC 32.1, RDW Std Deviation 46.4 H, RDW Coeff of Aiden 14.7 H, Plt Count 427, MPV 9.0, Immature Gran % (Auto) 0.300, Neut % (Auto) 70.2 H, Lymph % (Auto) 19.1, [place] % (Auto) 9.6, Eos % (Auto) 0.5, Baso % (Auto) 0.3, Absolute Neuts (auto) 7.0, Absolute Lymphs (auto) 1.90, Nucleated RBC % 0, Sodium 134 L, Potassium 3.5, Chloride 98, Carbon Dioxide 27.0, Anion Gap 10, BUN 18, Creatinine 0.79, Estim Creat Clear Calc 35.97, Est GFR (MDRD) Af Amer 88, Est GFR (MDRD) Non-Af 73, BUN/Creatinine Ratio 22.8 H, Glucose 88, Calcium 8.9, Magnesium 2.3 Microbiology: Microbiology 09/06/24 03:50 Urine, Random Legionella Antigen - Final 09/06/24 03:50 Urine, Random Streptococcus pneumoniae Antigen (M - Final 09/05/24 21:42 Mucosa - Nose SARS-CoV-2, Influenza & RSV (PCR) - Final Radiography Diagnostic Testing: Radiology Impression Echocardiogram 09/06/24 00:13 Interpretation Summary The estimated ejection fraction is 60 %. No evidence for diastolic dysfunction. Moderate to severe mitral regurgitation Ordering Physician: Ronal Colin Referring Physician: nadia pcp Performed By: Tamia Torrez RCS D/C Instructions Discharge Diet: No restrictions Weight Bearing Status: Full weight bearing DC O2, CPAP, BIPAP Needs RN Home O2 Qualification: Home O2 Qualification: Is the patient on home oxygen No 09/07/24 14:16 Home O2 Qualification: AT REST 1- Pulse Ox at rest 96 09/07/24 14:16 Home O2 Qualification: WITH AMBULATION 1- Pulse Ox with ambulation 92 09/07/24 14:16 1- Oxygen Flow Rate with 0 09/07/24 14:16 ambulation Home O2 Discharge instructions: No Meaningful Use Info Meaningful Use Meaningful Use Diagnoses (Choose all that apply): CHF CHF YISSEL/ARB ordered at discharge?: No Reason YISSEL/ARB not ordered?: Not indicated Documented LVEF (%): 60 Ischemic Stroke Statin Dosing Therapy Reference: STATIN DOSE THERAPY REFERENCE: * Patients > 75 years receive moderate or high dose statin therapy. * Patients 75 years or YOUNGER should receive HIGH intensity statin dose unless contraindicated. You will be required to document reason for non-treatment if statin daily dose does not meet guidelines. HIGH DOSE STATIN THERAPY DAILY Atorvastatin > than or = to 40 mg Rosuvastatin > than or = to 20 mg Amlodipine + Atorvastatin > than or = to 2.5/40 mg Ezetimibe + Simvastatin 10/80 mg Simvastatin 80mg Discharge Plan Admission Admit Date/Time: 09/06/24 00:02 Primary Reason for Your Visit: congestive heart failure, mitral regurg Attending Provider: Andrew Sebastian Primary Care Provider: Care Physician,No Primary Consulting Providers: Ronal Colin Discharge Orders/Prescriptions Prescriptions: New potassium chloride 20 mEq Tablet,Er Particles/Crystals 20 meq PO BIDCM Qty: 60 0RF furosemide [Lasix] 40 mg tablet 40 mg PO BID Qty: 60 0RF Continued benzonatate 100 mg capsule 100 mg PO TID PRN PRN (Reason: cough) Discontinued doxycycline hyclate 100 mg tablet 100 mg PO BID Referrals / Follow Up: Care Physician,No Primary [Primary Care Provider] - Teja Lo BILINGUAL INTERPRETER, BILINGUAL INTERPRETER-C [Non-Staff] - Within 2 Weeks Disposition Disposition (needs filled in before D/C Order can be placed): Home, Self Care Charges/Coding Visit Charges Inpatient E&M: 46390 Disch Hosp >30min
[2024-09-07 15:14] VITALS: BP 133/69; PULSE 90; RESP 16; TEMP 36.8; O2SAT 97
== END 2024-09-07 17:04 | disposition home or self-care (01) | DRG 292 ==
LOC: ED 09-06 00:09 → PCU 09-06 01:34
PROVIDERS: Admitting Provider Internal Medicine; Emergency Provider Emergency Medicine; Visit Provider Internal Medicine
DX: I50.31 Acute diastolic (congestive) heart failure (principal); I24.89 Other forms of acute ischemic heart disease; I34.0 Nonrheumatic mitral (valve) insufficiency; N39.3 Stress incontinence (female) (male)
CPT/HCPCS: 36415; 71045; 71275; 80048; 80053; 80061; 83735; 83880; 84100; 84443; 84484; 85025; 87449; 87631; 93005; 93306; 94668; 97162; 99283; P9047; Q9967; A4216; J1940

== ENCOUNTER → 2024-11-12 | Outpatient (CLI) | payer MEDICARE, SELFPAY ==
--- NOTE | 2024-11-12 16:20 | RAD_ITS ---
PROCEDURE: SHOULDER MIN 2 VIEWS 11/12/2024 REASON FOR EXAM: SWELLING RIGHT SHOULDER TECHNIQUE: Five (5) views of the right shoulder COMPARISON: No relevant priors. FINDINGS: Bones: Hypertrophic spurring involving the humeral head and glenoid. Degenerative cystic changes are noted involving the humeral head and acromioclavicular joint. Joints: Dislocations or subluxations. Degenerative changes of the glenohumeral joint. Soft tissues: Soft tissue swelling superior to the lateral clavicle. Other: Atherosclerotic disease of the aorta. 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 Soft tissue swelling superior to the lateral clavicle. Reading Location: [facility]
[2024-11-12 18:21] LABS: Absolute Lymphocyte Count 1.37 X10^3/uL (0.83-4.51); Absolute Neutrophil Count 6.5 X10^3/uL (2.0-7.7); Basophil# 0.07 X10^3/uL; Basophil% 0.8 % (0-1); Eosinophil# 0.12 X10^3/uL; Eosinophils% 1.4 % (0-5); Hemoglobin 12.4 g/dL (12.0-15.0); Lymphocyte # 1.37 X10^3/ul (0.83-4.51); Lymphocyte % 15.6 % (19-41); Mean Corp Hgb Conc 33.5 g/dL (32-36); Mean Corpuscular Hgb 29.1 pg (27.0-32.0); Mean Corpuscular Volume 86.9 fL (81-99); Monocyte# 0.66 X10^3/uL; Monocyte% 7.5 % (0-10); NRBC Flagged by Analyzer 0 % (0-5); Neutrophil # 6.54 X10^3/uL (2.7-7.7); Neutrophil % 74.4 % (47-70); Platelet Count 364 K/mm3 (150-450); RBC Distribution Width CV 15.2 % (11.6-14.6); RBC Distribution Width SD 48.9 fl (35.1-43.9); Red Blood Count 4.26 M/mm3 (4.2-5.4); White Blood Count 8.8 K/mm3 (4.4-11.0)
[2024-11-12 20:05] LABS: ALB/GLOB Ratio 1.1 RATIO (0.9-2.4); AST(SGOT) 29 U/L (<=31); Alanine Aminotransfer ALT/SGPT 11 U/L (<=34); Albumin, Serum 4.2 g/dL (3.4-4.8); Alkaline Phosphatase 144 U/L (35-104); Anion Gap 13 (5-15); BUN 23 mg/dL (4-19); BUN/Creat Ratio 28.9 RATIO (10-20); Calcium,Total 9.8 mg/dL (7.6-11.0); Carbon Dioxide 24.8 mmol/L (21.0-32.0); Chloride 100 mmol/L (98-108); Creatinine, Serum 0.79 mg/dL (0.70-1.20); EST Glomerular Filtration Rate 72 (>60); Globulin 3.7 g/dL (2.2-4.2); Glucose 86 mg/dL (70-99); Protein, Total 7.9 g/dL (5.9-8.4); Sodium Level 138 mmol/L (133-145); Total Bilirubin 0.49 mg/dL (0.00-1.30)
[2024-11-12 20:08] LABS: Vitamin D,25 Hydroxy 12.5 ng/mL (30-100)
== END | disposition home or self-care (01) ==
LOC: MTLAB 16:18
PROVIDERS: PCP Family Medicine; Referring Provider Family Medicine; Visit Provider Family Medicine
DX: M67.40 Ganglion, unspecified site (principal); I50.9 Heart failure, unspecified
CPT/HCPCS: 36415; 73030; 80053; 82306; 84443; 85025